=== PATIENT | female | born 1960 | race Caucasian/White ===

== ENCOUNTER 2021-10-03 10:25 | Emergency (ER) | payer OTHER, SELFPAY ==
[2021-10-03] MEDS ORDERED: Ondansetron 4 MG/2 ML SDV IVPUSH ONE (10:56)
[2021-10-03] MEDS ORDERED: Labetalol 20 MG/4 ML Syringe IVPUSH ONE (10:56)
[2021-10-03] MEDS ORDERED: Sodium Chloride 0.9% 10 ML Syringe FLUSH PRN (10:56)
[2021-10-03] MEDS ORDERED: LORazepam 2 MG/ML SDV IVPUSH ONE (11:00)
--- NOTE | 2021-10-03 11:04 | EDM.PDOC ---
ED HPI GENERAL MEDICAL PROBLEM - General Chief Complaint: Gastrointestinal Problem Stated Complaint: NAUSEA Time Seen by Provider: 10/03/21 11:01 Source of Information: Reports: Patient History Limitations: Reports: Altered Mental Status - History of Present Illness INITIAL COMMENTS - FREE TEXT/NARRATIVE: Loan is a 61 yo female with complains of dizziness/lightheadedness and nausea. She is a poor historian and appears confused. She reports having felt unwell for a few hours,perhaps since 4 pm plast night. No chest pain or shortness of breath. - Related Data Allergies Allergy/AdvReac Type Severity Reaction Status Date / Time erythromycin base Allergy Nausea Verified 10/03/21 10:33 Home Meds: Home Meds Aspirin [Ecotrin EC] 81 mg PO DAILY 10/03/21 [History] Escitalopram Oxalate [Lexapro] 10 mg PO BEDTIME 10/03/21 [History] Furosemide [Lasix] 20 mg PO DAILY 10/03/21 [History] Levothyroxine [Synthroid] 100 mcg PO BEDTIME 10/03/21 [History] buPROPion HCL [Wellbutrin Xl] 150 mg PO DAILY 10/03/21 [History] hydroCHLOROthiazide [Hydrochlorothiazide] 25 mg PO DAILY 10/03/21 [History] Past Medical History HEENT History: Reports: Other (See Below) Other HEENT History: detached L retina Cardiovascular History: Reports: Blood Clots/VTE/DVT, Hypertension Gastrointestinal History: Reports: GERD Genitourinary History: Reports: None SEA CAPTAIN History: Reports: Other SEA CAPTAIN History: Neurological History: Reports: Migraines, Vertigo Psychiatric History: Reports: Anxiety, Depression Endocrine/Metabolic History: Reports: Hypoparathyroidism, Obesity/BMI 30+ - Infectious Disease History Infectious Disease History: Reports: Chicken Pox - Past Surgical History HEENT Surgical History: Reports: Cataract Surgery, Detached Retina, Eye Surgery Other HEENT Surgeries/Procedures: L eye, bilat cataract surg Cardiovascular Surgical History: Reports: None GI Surgical History: Reports: Colonoscopy Female Surgical History: Reports: Hysterectomy Social & Family History - Family History Family Medical History: No Pertinent Family History - Tobacco Use Tobacco Use Status *Q: Never Tobacco User - Caffeine Use Caffeine Use: Reports: Coffee, Soda - Recreational Drug Use Recreational Drug Use: Yes Recreational Drug Type: Reports: Marijuana/Hashish Recreational Drug Use Frequency: Socially ED ROS GENERAL - Review of Systems Review Of Systems: Comprehensive ROS is negative, except as noted in HPI. ED EXAM, NEURO - Physical Exam Exam: See Below Exam Limited By: No Limitations General Appearance: Alert, No Apparent Distress, Anxious Ears: Normal External Exam Nose: Normal Inspection Throat/Mouth: Normal Inspection Head Exam: Atraumatic, Normocephalic Neck: Normal Inspection Respiratory/Chest: No Respiratory Distress Cardiovascular: Normal Peripheral Pulses, Regular Rate, Rhythm GI/Abdominal: Normal Bowel Sounds Neurological: Alert, Normal Mood/Affect, CN II-XII Intact. No: Oriented x 3 Extremities: Normal Inspection Psychiatric: Anxious #1 Interpretation EKG Date: 10/03/21 Rhythm: Other (Sinus tacheycardia) [place]: Normal P-Wave: Present Comparison: NA - No Prior EKG Course - Vital Signs Last Recorded V/S: Last Vital Signs Temp 98.2 F 10/03/21 10:25 Pulse 113 H 10/03/21 10:25 Resp 24 H 10/03/21 10:25 BP 193/101 H 10/03/21 10:25 Pulse Ox 97 10/03/21 10:25 - Orders/Labs/Meds Orders: Active Orders 24 hr Category Date Time Status Head wo Cont [CT] Stat Exams 10/03/21 11:01 Taken Sodium Chloride 0.9% [Saline Flush] Med 10/03/21 10:56 Active 10 ml FLUSH ASDIRECTED PRN Peripheral IV Insertion Adult [OM.PC] Routine Oth 10/03/21 10:56 Ordered Medication Orders Sodium Chloride (Sodium Chloride 0.9% 10 Ml Syringe) 10 ml FLUSH ASDIRECTED PRN PRN Reason: Keep Vein Open Last Admin: 10/03/21 11:15 Dose: 10 ml Documented by: SHAWN Labs: Laboratory Tests 10/03/21 10/03/21 10/03/21 Range/Units 10:50 10:50 10:50 WBC 12.3 H (3.0-10.3) x10-3/uL RBC 5.05 (3.60-5.20) x10(6)uL Hgb 14.4 (11.4-15.5) g/dL Hct 43.0 (34.2-48.2) % MCV 85.1 (76.7-100.5) fL MCH 28.4 (23.9-33.9) pg MCHC 33.4 (31.9-34.8) g/dL RDW 12.8 (12.3-16.5) % Plt Count 364 (151-488) x10(3)uL MPV 7.5 (7.1-12.4) fL Add Manual Diff Yes Neutrophils % (Manual) 86 H (46-82) % Band Neutrophils % 2 (0-6) % Lymphocytes % (Manual) 8 L (13-37) % Monocytes % (Manual) 4 (4-12) % Sodium 138 (135-145) mmol/L Potassium 3.8 (3.5-5.3) mmol/L Chloride 100 (100-110) mmol/L Carbon Dioxide 22 (21-32) mmol/L BUN 18 (7-18) mg/dL Creatinine 1.2 H (0.55-1.02) mg/dL Est Cr Clr Drug Dosing 38.94 mL/min Estimated GFR (MDRD) 46 L (>60) BUN/Creatinine Ratio 15.0 (9-20) Glucose 149 H (80-116) mg/dL Calcium 9.7 (8.6-10.2) mg/dL Total Bilirubin 0.7 (0.1-1.3) mg/dL AST 19 (5-25) IU/L ALT 21 (12-36) U/L Alkaline Phosphatase 78 (56-112) IU/L Troponin I < 4.0 L (4.0-60.3) pg/mL Total Protein 8.4 H (6.0-8.0) g/dL Albumin 4.1 (3.2-4.6) g/dL Globulin 4.3 g/dL Albumin/Globulin Ratio 1.0 Meds: Medications Generic Name Dose Route Start Last Admin Trade Name Freq PRN Reason Stop Dose Admin Sodium Chloride 10 ml 10/03/21 10:56 10/03/21 11:15 Sodium Chloride 0.9% 10 Ml Syringe FLUSH 10 ml ASDIRECTED PRN Administration Keep Vein Open Discontinued Medications Generic Name Dose Route Start Last Admin Trade Name Freq PRN Reason Stop Dose Admin Labetalol HCl 10 mg 10/03/21 10:56 10/03/21 11:43 Labetalol 20 Mg/4 Ml Syringe IVPUSH 10/03/21 10:57 10 mg ONETIME ONE Administration Protocol Lorazepam 0.5 mg 10/03/21 11:00 10/03/21 11:41 Lorazepam 2 Mg/Ml Sdv IVPUSH 10/03/21 11:01 0.5 mg ONETIME ONE Administration Ondansetron HCl 4 mg 10/03/21 10:56 10/03/21 11:15 Ondansetron 4 Mg/2 Ml Sdv IVPUSH 10/03/21 10:57 4 mg ONETIME ONE Administration Departure - Departure Time of Disposition: 13:10 Disposition: Home, Self-Care 01 Condition: Good Clinical Impression: Hypertensive emergency, Encephalopathy acute - Discharge Information Referrals: Mehreen Mejia [facility] [Primary Care Provider] - Forms: ED Department Discharge Sepsis Event Note (ED) - Evaluation Sepsis Screening Result: No Definite Risk - Focused Exam Vital Signs: Vital Signs Temp Pulse Resp BP Pulse Ox 10/03/21 10:25 98.2 F 113 H 24 H 193/101 H 97 - Problem List & Annotations (1) Hypertensive emergency SNOMED Code(s): 164744082826685 Code(s): I16.1 - HYPERTENSIVE EMERGENCY Status: Acute Current Visit: Yes (2) Encephalopathy acute SNOMED Code(s): 89192986, 355472666 Code(s): G93.40 - ENCEPHALOPATHY, UNSPECIFIED Status: Acute Current Visit: Yes (3) Anxiety SNOMED Code(s): 94920760 Code(s): F41.9 - ANXIETY DISORDER, UNSPECIFIED Status: Acute Current Visit: Yes - Problem List Review Problem List Initiated/Reviewed/Updated: Yes - My Orders Last 24 Hours: My Active Orders 10/03/21 10:56 Sodium Chloride 0.9% [Saline Flush] 10 ml FLUSH ASDIRECTED PRN Peripheral IV Insertion Adult [OM.PC] Routine 10/03/21 11:01 Head wo Cont [CT] Stat - Assessment/Plan Last 24 Hours: My Active Orders 10/03/21 10:56 Sodium Chloride 0.9% [Saline Flush] 10 ml FLUSH ASDIRECTED PRN Peripheral IV Insertion Adult [OM.PC] Routine 10/03/21 11:01 Head wo Cont [CT] Stat Plan: CT head is normal.BP improved on Labetalol and Zofran.DC home.
[2021-10-03] MEDS ORDERED: hydrOXYzine HCl 50 MG/ML SDV IM ONE (13:32)
== END 2021-10-03 14:17 | disposition home or self-care (01) ==
LOC: FB.ED 10:25
DX: G93.40 Encephalopathy, unspecified (principal); I16.1 Hypertensive emergency; I10 Essential (primary) hypertension; K21.9 Gastro-esophageal reflux disease without esophagitis; E66.9 Obesity, unspecified; Z88.1 Allergy status to other antibiotic agents; Z79.82 Long term (current) use of aspirin; Z79.899 Other long term (current) drug therapy; Z68.41 Body mass index [BMI] 40.0-44.9, adult
CPT/HCPCS: 36415; 70450; 80053; 84484; 85025; 93005; 96372; 96374; 96375; 99284; J2060; J2405; J3410; J3490